=== PATIENT | female | born 1960 | race Caucasian/White ===

== ENCOUNTER 2017-09-09 16:06 | Emergency (ER) | payer BC ==
[2017-09-09 16:37] VITALS: BP 128/70
--- NOTE | 2017-09-09 17:07 | EDM.PDOC ---
ED HPI GENERAL MEDICAL PROBLEM - General Chief Complaint: General Stated Complaint: SENT BY CLINIC POSS INFLAMATION OF ARTERIES Time Seen by Provider: 09/09/17 16:21 Source of Information: Reports: Patient, RN Notes Reviewed - History of Present Illness INITIAL COMMENTS - FREE TEXT/NARRATIVE: 56-year-old female referred with very mild swelling left posterior jaw about 5 days ago. That has been progressively becoming more swollen and uncomfortable. She did go to the walk-in clinic at [facility] yesterday late afternoon. Ultrasound of the area was ordered which was done at 1:00 this afternoon. After this had been read by radiologist she was contacted, informed to see her primary doctor. She was unable to get in to see her regular doctor this afternoon so therefore presents to the ED for further treatment. Her throat does not feel swollen. She is not have any difficulty swallowing. Had no fever or chills. She is had no ear drainage or discomfort. She is never had anything of this nature previously. Treatments LEGAL ADMINISTRATIVE ASSISTANT: Reports: Acetaminophen, Aspirin, NSAIDS, Other (see below) Other Treatments LEGAL ADMINISTRATIVE ASSISTANT: Allerest lotion applied to site this am and again at noon Left Ear Pain Score (Numeric/FACES): 8 - Related Data Allergies Allergy/AdvReac Type Severity Reaction Status Date / Time hydromorphone HCl Allergy Severe Anaphylactic Verified 09/09/17 16:39 [From Dilaudid] Shock metronidazole [From Flagyl] Allergy Intermediate Hives Verified 09/09/17 16:39 morphine Allergy Intermediate Hives Verified 09/09/17 16:39 lisinopril AdvReac Mild Cough Verified 09/09/17 16:39 losartan [From Cozaar] AdvReac Mild Muscle Verified 09/09/17 16:39 Aches simvastatin AdvReac Mild Muscle Verified 09/09/17 16:39 Aches Home Meds: Home Meds Albuterol Sulfate [Proair Hfa] 2 puff IH Q4HR PRN 09/06/15 [History] Budesonide/Formoterol [Symbicort 160-4.5 MCG] 2 puff INH BID 09/06/15 [History] FLUoxetine [PROzac] 60 mg PO BEDTIME 09/06/15 [History] Hydrochlorothiazide 25 mg PO DAILY 09/06/15 [History] Levothyroxine 112 mcg PO ACBREAKFAST 09/06/15 [History] Metoprolol Tartrate [Lopressor] 50 mg PO BID 09/06/15 [History] Omeprazole 40 mg PO 0600,1600 09/06/15 [History] Aspirin 81 mg PO DAILY 06/29/16 [History] Calcium/Magnesium/Zinc [Qfasdyz-Afhpgvcdd-Snxn Tablet] 1 each PO DAILY 06/29/16 [History] Magnesium Amino Acid Chelate [Magnesium] 250 mg PO DAILY 06/29/16 [History] Vitamin B6-pyridOXINE 100 mg PO DAILY 06/29/16 [History] Cephalexin 500 mg PO Q6HR #30 capsule 09/09/17 [Rx] Doxycycline [Vibramycin] 100 mg PO Q12HR #14 cap 09/09/17 [Rx] Past Medical History HEENT History: Reports: Cataract, Impaired Vision, Other (See Below) Other HEENT History: wears glasses Cardiovascular History: Reports: CAD, High Cholesterol, Hypertension Other Cardiovascular History: vericose veins Respiratory History: Reports: Asthma Gastrointestinal History: Reports: GERD, Hiatal Hernia, Other (See Below) Other Gastrointestinal History: Hx Pancreatitis, rectocele Genitourinary History: Reports: None 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, Other (See Below) Other OB/BYN History: cystocele Musculoskeletal History: Reports: Fibromyalgia, Other (See Below) Other Musculoskeletal History: carpal tunnel syndrome Psychiatric History: Reports: Anxiety, Depression Endocrine/Metabolic History: Reports: Hypothyroidism - Infectious Disease History Infectious Disease History: Reports: Chicken Pox, Measles - Past Surgical History Cardiovascular Surgical History: Reports: Other (See Below) Other Cardiovascular Surgeries/Procedures: Cardiac cath with no stents Respiratory Surgical History: Reports: None GI Surgical History: Reports: Appendectomy, Cholecystectomy, Colonoscopy, EGD, ERCP, Other (See Below) Female Surgical History: Reports: Endometrial Ablation, Tubal Ligation Endocrine Surgical History: Reports: None Musculoskeletal Surgical History: Reports: Arthroscopic Knee, Joint Replacement , Other (See Below) Other Musculoskeletal Surgeries/Procedures:: left knee arthroplasty Social & Family History - Family History Family Medical History: Noncontributory - Tobacco Use Smoking Status *Q: Never Smoker Years of Tobacco use: 1 Packs/Tins Daily: 0.1 Used Tobacco, but Quit: Yes Month Tobacco Last Used: 1969 Second Hand Smoke Exposure: No - Caffeine Use Caffeine Use: Reports: Tea - Alcohol Use Days Per Week of Alcohol Use: 0 (endorses 1-2 alcoholic beverages per month) - Recreational Drug Use Recreational Drug Use: No ED ROS GENERAL - Review of Systems Review Of Systems: See Below Constitutional: Denies: Fever, Chills HEENT: Reports: Other. Denies: Throat Pain, Throat Swelling Respiratory: Denies: Shortness of Breath (Swelling left face) Cardiovascular: Denies: Chest Pain GI/Abdominal: Denies: Abdominal Pain, Nausea, Vomiting Musculoskeletal: Denies: Neck Pain, Back Pain, Joint Pain Skin: Reports: Erythema (Left base, angle of jaw) Neurological: Denies: Dizziness, Headache, Numbness, Tingling ED EXAM, GENERAL - Physical Exam Exam: See Below General Appearance: Alert, Mild Distress Eye Exam: Bilateral Eye: PERRL Ear Exam: Bilateral Ear: Canal Normal, TM normal Nose: Normal Inspection Throat/Mouth: Normal Inspection, Normal Oropharynx Head: Facial Swelling (Moderate Swelling present left base near TMJ angle with mild erythema, localized tenderness) Neck: Supple, Full Range of Motion. No: Lymphadenopathy (L), Lymphadenopathy (R ) Respiratory/Chest: No Respiratory Distress, Lungs Clear, Normal Breath Sounds. No: Wheezing Cardiovascular: Regular Rate, Rhythm Extremities: Normal Inspection, Normal Range of Motion Neurological: Alert, Oriented, No Motor/Sensory Deficits Skin Exam: Warm, Dry Course - Vital Signs Last Recorded V/S: Last Vital Signs Temp 97.4 F 09/09/17 16:29 Pulse 68 09/09/17 16:29 Resp 16 09/09/17 16:29 BP 128/70 09/09/17 16:29 Pulse Ox 97 09/09/17 16:29 - Orders/Labs/Meds Labs: Laboratory Tests 09/09/17 09/09/17 Range/Units 17:15 17:15 WBC 8.35 (3.98-10.04) K/mm3 RBC 4.50 (3.98-5.22) M/mm3 Hgb 12.8 (11.2-15.7) gm/L Hct 38.6 (34.1-44.9) % MCV 85.8 (79.4-94.8) fl MCH 28.4 (25.6-32.2) pg MCHC 33.2 (32.2-35.5) g/dl RDW Std Deviation 41.9 (36.4-46.3) fL Plt Count 321 (182-369) K/mm3 MPV 8.1 L (9.4-12.3) fl Neutrophils % (Manual) 62 H (40-60) % Band Neutrophils % 0 (0-10) % Lymphocytes % (Manual) 24 (20-40) % Atypical Lymphs % 0 % Monocytes % (Manual) 10 (2-10) % Eosinophils % (Manual) 2 (0.7-5.8) % Basophils % (Manual) 2 H (0.1-1.2) Platelet Estimate Adequate Plt Morphology Comment Normal RBC Morph Comment Normal C-Reactive Protein 1.0 (<1.0) mg/dL - Re-Assessments/Exams Free Text/Narrative Re-Assessment/Exam: 09/13/17 08:37. I did consult with Dr. Quick, ENT on-call for Mart Roldan. Even though white blood count and sedimentation rate is normal he does feel there may well be a component of infection so does recommend treating with antibiotic. Ultrasound report from clinic reviewed. Discharge instructions as documented. Departure - Departure Time of Disposition: 18:40 Disposition: Home, Self-Care 01 Condition: Fair Clinical Impression: Parotitis not due to mumps - Discharge Information Prescriptions: Cephalexin 500 mg PO Q6HR #30 capsule Doxycycline [Vibramycin] 100 mg PO Q12HR #14 cap Instructions: Parotitis, [id number] Referrals: Queta Mason MD [Primary Care Provider] - Forms: ED Department Discharge Additional Instructions: Cephalexin antibiotic 500 mg 4 times daily and doxycycline 100 mg twice daily as prescribed, lemon draw or other hard candy every 1-2 hours while awake, he may alternate Tylenol and ibuprofen as needed for discomfort, follow-up clinic Wednesday for recheck, call tomorrow for appointment, return to ED if symptoms worsening in any way.
== END 2017-09-09 18:53 | disposition home or self-care (01) ==
LOC: JD.ED 16:06
DX: K11.20 Sialoadenitis, unspecified (principal); I10 Essential (primary) hypertension; E78.00 Pure hypercholesterolemia, unspecified; E03.9 Hypothyroidism, unspecified; Z79.899 Other long term (current) drug therapy; Z87.891 Personal history of nicotine dependence; Z88.5 Allergy status to narcotic agent; Z88.8 Allergy status to other drugs, medicaments and biological substances; Z79.82 Long term (current) use of aspirin; Z88.6 Allergy status to analgesic agent
CPT/HCPCS: 36415; 85025; 86140; 99283

== ENCOUNTER 2019-08-22 09:51 | Emergency (ER) | payer BC ==
[2019-08-22 10:05] VITALS: BP 118/72; PULSE 68
[2019-08-22] MEDS ORDERED: Metoclopramide 10 MG/2 ML SDV IVPUSH ONE (10:15)
[2019-08-22] MEDS ORDERED: Dextrose 5%-0.9% NaCl 1,000 ML IV SCH (10:15)
[2019-08-22] MEDS ORDERED: fentaNYL 100 MCG/2 ML SDV IVPUSH ONE (10:24)
--- NOTE | 2019-08-22 10:28 | EDM.PDOC ---
ED HPI GENERAL MEDICAL PROBLEM - General Chief Complaint: Abdominal Pain Stated Complaint: abd pain/vomiting Time Seen by Provider: 08/22/19 10:15 Source of Information: Reports: Patient History Limitations: Reports: Physical Impairment (Recurrent dry heaving and retching.) - History of Present Illness INITIAL COMMENTS - FREE TEXT/NARRATIVE: 58-year-old female presents to the ED with severe upper abdominal pain and intractable nausea and vomiting. She states she had a bout of severe upper abdominal pain last evening then it seemed to settle a bit overnight. However she awoke with pain this morning and is progressed as the day has gone on. Patient has a history of pancreatitis 2 felt to be induced by gallstone disease. She has had previous cholecystectomy and appendectomy. She is perimenopausal. Denies any fever but does have some chills. Emesis this morning is been all bilious and ascitic. Is not radiating through to her back. She rarely would never drink alcohol. Patient states current pain syndrome feels like what she is experiencing the past with pancreatitis. Onset: Gradual Onset Date: 08/21/19 (Pain started last evening.) Duration: Hour(s):, Getting Worse Location: Reports: Abdomen (Upper abdomen mostly epigastrium left upper quadrant.). Denies: Radiates to Quality: Reports: Ache, Sharp (Is a strong colicky component to the pain.), Stabbing, Other Severity: Severe (10 out of 10) Improves with: Reports: None Worsens with: Reports: None Context: Reports: Other. Denies: Activity, Exercise, Lifting, Sick Contact, Trauma Associated Symptoms: Reports: Loss of Appetite, Malaise, Nausea/Vomiting. Denies: Confusion, Chest Pain, Cough (Spontaneous occurrence), cough w sputum, Diaphoresis, Fever/Chills, Headaches, Rash, Seizure, Shortness of Breath, Syncope Treatments FIRE EXTINGUISHER MECHANIC: Reports: Other (see below) (None.) Epigastric Pain Score (Numeric/FACES): 10 - Related Data Allergies Allergy/AdvReac Type Severity Reaction Status Date / Time hydromorphone HCl Allergy Severe Anaphylactic Verified 08/22/19 09:59 [From Dilaudid] Shock metronidazole [From Flagyl] Allergy Intermediate Hives Verified 08/22/19 09:59 morphine Allergy Intermediate Hives Verified 08/22/19 09:59 lisinopril AdvReac Mild Cough Verified 08/22/19 09:59 losartan [From Cozaar] AdvReac Mild Muscle Verified 08/22/19 09:59 Aches simvastatin AdvReac Mild Muscle Verified 08/22/19 09:59 Aches Home Meds: Home Meds Albuterol Sulfate [Proair Hfa] 2 puff IH Q4HR PRN 09/06/15 [History] Budesonide/Formoterol [Symbicort 160-4.5 MCG] 2 puff INH BID 09/06/15 [History] FLUoxetine [PROzac] 60 mg PO BEDTIME 09/06/15 [History] Hydrochlorothiazide 25 mg PO DAILY 09/06/15 [History] Levothyroxine 112 mcg PO ACBREAKFAST 09/06/15 [History] Metoprolol Tartrate [Lopressor] 50 mg PO BID 09/06/15 [History] Omeprazole 40 mg PO 0600,1600 09/06/15 [History] Aspirin 81 mg PO DAILY 06/29/16 [History] Calcium/Magnesium/Zinc [Rbkmkxm-Olzrkylpp-Josk Tablet] 1 each PO DAILY 06/29/16 [History] Magnesium Amino Acid Chelate [Magnesium] 250 mg PO DAILY 06/29/16 [History] Vitamin B6-pyridOXINE 100 mg PO DAILY 06/29/16 [History] Doxycycline [Vibramycin] 100 mg PO Q12HR #14 cap 09/09/17 [Rx] cephALEXin [Cephalexin] 500 mg PO Q6HR #30 capsule 09/09/17 [Rx] Ondansetron [Zofran] 4 mg BUCCAL Q6H PRN #5 tab 08/22/19 [Rx] Past Medical History HEENT History: Reports: Cataract, Impaired Vision, Other (See Below) Other HEENT History: wears glasses Cardiovascular History: Reports: CAD, High Cholesterol, Hypertension Other Cardiovascular History: vericose veins Respiratory History: Reports: Asthma Gastrointestinal History: Reports: GERD, Hiatal Hernia, Other (See Below) Other Gastrointestinal History: Hx Pancreatitis, rectocele Genitourinary History: Reports: None DIRECTOR COMPLIANCE History: Reports: Endometrial Ablation, Other (See Below) Other DIRECTOR COMPLIANCE History: cystocele Musculoskeletal History: Reports: Fibromyalgia, Other (See Below) Other Musculoskeletal History: carpal tunnel syndrome Psychiatric History: Reports: Anxiety, Depression Endocrine/Metabolic History: Reports: Hypothyroidism (On supplement.), Osteopenia - Infectious Disease History Infectious Disease History: Reports: Chicken Pox, Measles - Past Surgical History Cardiovascular Surgical History: Reports: Other (See Below) Other Cardiovascular Surgeries/Procedures: Cardiac cath with no stents Respiratory Surgical History: Reports: None GI Surgical History: Reports: Appendectomy, Cholecystectomy, Colonoscopy, EGD, ERCP Female Surgical History: Reports: Endometrial Ablation, Tubal Ligation Endocrine Surgical History: Reports: None Musculoskeletal Surgical History: Reports: Arthroscopic Knee, Joint Replacement , Knee Replacement, Other (See Below) Other Musculoskeletal Surgeries/Procedures:: left knee arthroplasty, L) knee replacement. Social & Family History - Family History Family Medical History: Noncontributory - Tobacco Use Smoking Status *Q: Never Smoker Second Hand Smoke Exposure: No - Caffeine Use Caffeine Use: Reports: Tea - Recreational Drug Use Recreational Drug Use: No - Living Situation & Occupation Living situation: Reports: Occupation: Employed ED ROS GENERAL - Review of Systems Review Of Systems: See Below Constitutional: Reports: Chills, Malaise, Weakness, Fatigue, Decreased Appetite. Denies: Fever HEENT: Reports: Glasses Respiratory: Reports: No Symptoms Cardiovascular: Reports: No Symptoms Endocrine: Reports: Fatigue GI/Abdominal: Reports: Abdominal Pain, Anorexia, Nausea (See history of present illness), Vomiting (Intractable nausea and vomiting this morning.) : Reports: No Symptoms Musculoskeletal: Reports: No Symptoms Skin: Reports: No Symptoms Neurological: Reports: No Symptoms Psychiatric: Reports: Depression Hematologic/Lymphatic: Reports: No Symptoms Immunologic: Reports: No Symptoms ED EXAM, GI/ABD - Physical Exam Exam: See Below Exam Limited By: No Limitations General Appearance: Alert, WD/WN, Severe Distress, Other (Intractable nausea and vomiting. Bilious emesis this morning.) Eyes: Bilateral: Normal Appearance (No scleral icterus.) Throat/Mouth: Other Head: Atraumatic, Normocephalic Neck: Normal Inspection, Supple, Non-Tender, Full Range of Motion. No: Carotid Bruit, Lymphadenopathy (L), Lymphadenopathy (R) Respiratory/Chest: No Respiratory Distress, Lungs Clear, Normal Breath Sounds, No Accessory Muscle Use, Chest Non-Tender, Respiratory Distress Cardiovascular: Normal Peripheral Pulses, Regular Rate, Rhythm, No Edema, No Gallop, No Murmur (Mild tachypnea from vomiting.), No Rub GI/Abdominal Exam: No Organomegaly, No Distention, Pelvis Stable, Tender ( Wrists in the epigastrium and left upper quadrant and right upper quadrant with a mildly positive Logan's sign.), Abnormal Bowel Sounds (Bowel sounds are very quiet sent and all 4 quadrants.) Back Exam: Normal Inspection, Full Range of Motion. No: CVA Tenderness (L), CVA Tenderness (R) Extremities: Normal Inspection, Normal Range of Motion, Non-Tender Neurological: Alert, Oriented, CN II-XII Intact, Normal Cognition Psychiatric: Other Skin Exam: Cool, Pallor (Cool and clammy to touch. Mildly pallid.) EKG INTERPRETATION EKG Date: 08/22/19 Time: 10:28 Rhythm: NSR Rate (Beats/Min): 65 [place]: Normal P-Wave: Enlarged (Mildly enlarged. Consider left atrial hypertrophy.) QRS: Normal ST-T: Other (Diffuse nonspecific T-wave changes with flattening and inversion in V1 and V2.) QT: Normal EKG Interpretation Comments: Borderline ECG. Course - Vital Signs Last Recorded V/S: Last Vital Signs Temp 35.7 C 08/22/19 09:55 Pulse 68 08/22/19 09:55 Resp 20 08/22/19 09:55 BP 118/72 08/22/19 09:55 Pulse Ox 100 08/22/19 09:55 - Orders/Labs/Meds Orders: Active Orders 24 hr Category Date Time Status EKG Documentation Completion [RC] STAT Care 08/22/19 10:25 Active Influenza Vaccine Charge [RC] .DISCHARGE Care 08/22/19 10:11 Active CALCIUM, IONIZED, SERUM [REF] Stat Lab 08/22/19 10:00 Received Labs: Laboratory Tests 08/22/19 08/22/19 08/22/19 Range/Units 10:00 10:00 10:00 WBC 7.31 (3.98-10.04) K/mm3 RBC 4.81 (3.98-5.22) M/mm3 Hgb 13.8 (11.2-15.7) gm/dl Hct 41.2 (34.1-44.9) % MCV 85.7 (79.4-94.8) fl MCH 28.7 (25.6-32.2) pg MCHC 33.5 (32.2-35.5) g/dl RDW Std Deviation 42.3 (36.4-46.3) fL Plt Count 337 (182-369) K/mm3 MPV 8.8 L (9.4-12.3) fl Neutrophils % (Manual) 83 H (40-60) % Band Neutrophils % 0 (0-10) % Lymphocytes % (Manual) 15 L (20-40) % Atypical Lymphs % 0 % Monocytes % (Manual) 2 (2-10) % Eosinophils % (Manual) 0 L (0.7-5.8) % Basophils % (Manual) 0 L (0.1-1.2) Platelet Estimate Adequate Plt Morphology Comment Normal RBC Morph Comment Normal PT 10.5 (9.7-12.0) SECONDS INR 0.96 APTT 24 (22-31) SECONDS Sodium 136 (136-145) mEq/L Potassium 3.2 L (3.5-5.1) mEq/L Chloride 100 (98-107) mEq/L Carbon Dioxide 26 (21-32) mEq/L Anion Gap 13.2 (5-15) BUN 21 H (7-18) mg/dL Creatinine 1.0 (0.55-1.02) mg/dL Est Cr Clr Drug Dosing 52.95 mL/min Estimated GFR (MDRD) 57 (>60) mL/min BUN/Creatinine Ratio 21.0 H (14-18) Glucose 110 H (74-106) mg/dL Calcium 10.0 (8.5-10.1) mg/dL Magnesium 1.6 L (1.8-2.4) mg/dl Total Bilirubin 1.0 (0.2-1.0) mg/dL AST 32 (15-37) U/L ALT 32 (14-59) U/L Alkaline Phosphatase 119 H (46-116) U/L C-Reactive Protein 0.7 (<1.0) mg/dL Total Protein 7.3 (6.4-8.2) g/dl Albumin 3.7 (3.4-5.0) g/dl Globulin 3.6 gm/dL Albumin/Globulin Ratio 1.0 (1-2) Triglycerides 63 (<150) mg/dL Lipase 222 (73-393) U/L TSH 3rd Generation (0.358-3.74) uIU/mL 08/22/19 Range/Units 10:00 WBC (3.98-10.04) K/mm3 RBC (3.98-5.22) M/mm3 Hgb (11.2-15.7) gm/dl Hct (34.1-44.9) % MCV (79.4-94.8) fl MCH (25.6-32.2) pg MCHC (32.2-35.5) g/dl RDW Std Deviation (36.4-46.3) fL Plt Count (182-369) K/mm3 MPV (9.4-12.3) fl Neutrophils % (Manual) (40-60) % Band Neutrophils % (0-10) % Lymphocytes % (Manual) (20-40) % Atypical Lymphs % % Monocytes % (Manual) (2-10) % Eosinophils % (Manual) (0.7-5.8) % Basophils % (Manual) (0.1-1.2) Platelet Estimate Plt Morphology Comment RBC Morph Comment PT (9.7-12.0) SECONDS INR APTT (22-31) SECONDS Sodium (136-145) mEq/L Potassium (3.5-5.1) mEq/L Chloride (98-107) mEq/L Carbon Dioxide (21-32) mEq/L Anion Gap (5-15) BUN (7-18) mg/dL Creatinine (0.55-1.02) mg/dL Est Cr Clr Drug Dosing mL/min Estimated GFR (MDRD) (>60) mL/min BUN/Creatinine Ratio (14-18) Glucose (74-106) mg/dL Calcium (8.5-10.1) mg/dL Magnesium (1.8-2.4) mg/dl Total Bilirubin (0.2-1.0) mg/dL AST (15-37) U/L ALT (14-59) U/L Alkaline Phosphatase (46-116) U/L C-Reactive Protein (<1.0) mg/dL Total Protein (6.4-8.2) g/dl Albumin (3.4-5.0) g/dl Globulin gm/dL Albumin/Globulin Ratio (1-2) Triglycerides (<150) mg/dL Lipase (73-393) U/L TSH 3rd Generation 0.626 (0.358-3.74) uIU/mL Meds: Medications Discontinued Medications Generic Name Dose Route Start Last Admin Trade Name Freq PRN Reason Stop Dose Admin Dicyclomine HCl 20 mg 08/22/19 11:50 08/22/19 12:13 Bentyl PO 08/22/19 11:51 20 mg ONETIME ONE Administration Fentanyl 50 mcg 08/22/19 10:24 08/22/19 10:45 Sublimaze IVPUSH 08/22/19 10:25 50 mcg ONETIME ONE Administration Dextrose/Sodium Chloride 1,000 mls @ 150 mls/hr 08/22/19 10:15 08/22/19 10:23 Dextrose 5%-Normal Saline IV 150 mls/hr ASDIRECTED KARLY Administration Influenza Virus Vaccine 1 each 08/22/19 10:11 Pharmacy To Dose - Influenza Vaccine IM 08/22/19 10:12 ONETIME ONE Influenza Virus Vaccine 60 mcg 08/22/19 10:45 08/22/19 12:13 Fluzone Quad [id number] Syringe IM 08/22/19 10:46 60 mcg .ONCE ONE Administration Magnesium Citrate 210 ml 08/22/19 11:50 08/22/19 12:13 Citrate Of Magnesia PO 08/22/19 11:51 210 ml ONETIME ONE Administration Metoclopramide HCl 7.5 mg 08/22/19 10:15 08/22/19 10:18 Reglan IVPUSH 08/22/19 10:16 7.5 mg ONETIME ONE Administration - Radiology Interpretation Free Text/Narrative:: 58-year-old female presents to the ED with acute onset of upper abdominal pain last evening which is progressed overnight. Associated nausea and vomiting of bilious material this morning. She has a history of pancreatitis at least twice in the past thought to be induced by gallbladder disease. Subsequent she's had a cholecystectomy greater than 10 years ago. She rarely drinks alcohol. There is a strong colicky component to her pain however. She states her bowel function has been normal this morning and last night without blood. Plan IV D5 normal saline at 150 mils per hour. Reglan 7.5 mg IV. She's allergic to Dilaudid and morphine. We'll try fentanyl 50 g IV for pain relief. She will have one view the abdomen routine labs including a serum lipase. Will likely require CT the abdomen. - Re-Assessments/Exams Free Text/Narrative Re-Assessment/Exam: 08/22/19 11:08 KUB reveals increased stool in the splenic flexure hand dominant descending colon with no signs of bowel obstruction. 08/22/19 11:23 White blood cell count is 7.31 with 83% neutrophils and no bands reported. Hemoglobin 13.8 with hematocrit of 41.2. MCV is normal. Platelet count 3 and 37,000. PT is 10.5 with an INR of 0.96 PTT is 24. Sodium 136 potassium slightly low at 3.2. Chloride 100 with a bicarbonate of 26. And a gap is 13.2. BUN is 21 with a creatinine of 1.0. Glucose is 110 calcium is 10.0. Magnesium is slightly low at 1.6. Liver function is normal alk phosphatase is 119 C-reactive protein 0.7. Total protein is 7.3 with an albumin fraction of 3.7. Triglycerides are 63. Lipase is 222. 08/22/19 11:49 discussed the findings with the patient and her . No signs of pancreatitis. Pain is markedly improved. Vomiting is better. I suspect diabetes into her abdomen due to increased bowel sounds that it is due to a stool plug causing her severe abdominal pain. I'm therefore going to give her Bentyl 20 mg by mouth daily for the cramping. Also Citroma 7 ounces by mouth mixed with 6 ounces of juice to provide bowel cleanse and see how things go. She will return to the ED if not markedly improved after bowel cleanse. I'm going to discharge her on Zofran 4 mg sublingual every 4-6 hours necessary for nausea relief in case it returns. She was given Bentyl 20 mg by mouth before leaving the department to relieve any further abdominal cramping pain. Departure - Departure Time of Disposition: 11:51 Disposition: Home, Self-Care 01 Condition: Fair Clinical Impression: Constipation by delayed colonic transit Abdominal pain Qualifiers: Abdominal location: upper abdomen Qualified Code(s): R10.10 - Upper abdominal pain, unspecified - Discharge Information *PRESCRIPTION DRUG MONITORING PROGRAM REVIEWED*: Not Applicable *COPY OF PRESCRIPTION DRUG MONITORING REPORT IN PATIENT [place]: Not Applicable Prescriptions: Ondansetron [Zofran] 4 mg BUCCAL Q6H PRN #5 tab PRN Reason: nausea or vomiting Instructions: Constipation, Adult Referrals: Oracio Welch MD [Primary Care Provider] - Forms: ED Department Discharge, ED Return to Work/School Form Additional Instructions: Evaluation the emergency room this morning in regards to development of severe epigastric upper abdominal pain associated with intractable nausea and vomiting. Pain started suddenly last night and then seemed to settle overnight but came back severely this morning. Gone colicky component to the pain. Concern was for recurrence of pancreatitis. You have had this in the past. Labs don't reveal any signs of hepatitis/pancreatitis with normal enzymes no signs of infection either. The x-ray of the abdomen does show increased air and stool scattered throughout the colon and there are couple of areas that could act as a stool plug to cause such intense intestinal colic and pain syndrome. Suggest use of magnesium citrate 7 ounces by mouth mixed with 6 ounces of juice of choice to provide bowel cleanse. 4 mg sublingually will be sent home with your case nausea reoccur To be taken under the tongue every 4-6 hours as needed. You are also given Bentyl 20 mg by mouth in the ED to help alleviate abdominal cramping pain if it reoccurs. Return to medical care if not markedly improved after bowel cleanse. - My Orders Last 24 Hours: My Active Orders 08/22/19 10:00 CALCIUM, IONIZED, SERUM [REF] Stat 08/22/19 10:11 Influenza Vaccine Charge [RC] .DISCHARGE 08/22/19 10:25 EKG Documentation Completion [RC] STAT - Assessment/Plan Last 24 Hours: My Active Orders 08/22/19 10:00 CALCIUM, IONIZED, SERUM [REF] Stat 08/22/19 10:11 Influenza Vaccine Charge [RC] .DISCHARGE 08/22/19 10:25 EKG Documentation Completion [RC] STAT
[2019-08-22] MEDS ORDERED: FLU Vacc QS2019-20(6MOS+)/PF 60 MCG/0.5 ML SYRINGE IM ONE (10:45)
--- NOTE | 2019-08-22 11:00 | CR ---
Abdomen: Supine view of the abdomen was obtained. Comparison: Prior abdominal x-ray of 12/14/09. Surgical clips are seen from prior cholecystectomy. Bowel gas pattern is normal. Calcifications are seen within the pelvis which are felt compatible with phleboliths. Bony structures appear within normal limits for the patient's age. Impression: 1. Findings believed to be incidental. 2. Nothing acute is appreciated on supine abdominal x-ray. Diagnostic code #2
[2019-08-22] MEDS ORDERED: Dicyclomine 10 MG Cap PO ONE (11:50)
[2019-08-22] MEDS ORDERED: Magnesium Citrate Solution 296 ML Bottle PO ONE (11:50)
== END 2019-08-22 12:22 | disposition home or self-care (01) ==
LOC: JD.ED 09:51
DX: K59.01 Slow transit constipation (principal); I25.10 Atherosclerotic heart disease of native coronary artery without angina pectoris; I10 Essential (primary) hypertension; F32.9 Major depressive disorder, single episode, unspecified; J45.909 Unspecified asthma, uncomplicated; K21.9 Gastro-esophageal reflux disease without esophagitis; E03.9 Hypothyroidism, unspecified; Z88.8 Allergy status to other drugs, medicaments and biological substances; Z88.5 Allergy status to narcotic agent; Z79.899 Other long term (current) drug therapy; Z79.51 Long term (current) use of inhaled steroids; Z79.82 Long term (current) use of aspirin; Z79.84 Long term (current) use of oral hypoglycemic drugs
CPT/HCPCS: 36415; 74018; 80053; 82330; 83690; 83735; 84443; 84478; 85007; 85027; 85610; 85730; 86140; 90471; 90686; 93005; 96361; 96374; 96375; 99284; A9270; J2765; J3010; J7042; 93010; G0008

== ENCOUNTER 2020-12-27 12:48 | Emergency (ER) | payer BC ==
[2020-12-27 12:58] VITALS: BP 148/101; PULSE 62
[2020-12-27] MEDS ORDERED: Sodium Chloride 0.9% 10 ML Syringe FLUSH PRN (13:03)
[2020-12-27] MEDS ORDERED: diphenhydrAMINE 50 MG/ML SDV IVPUSH ONE (13:10)
[2020-12-27] MEDS ORDERED: LORazepam 2 MG/ML SDV IVPUSH ONE (13:10)
[2020-12-27] MEDS ORDERED: Metoclopramide 10 MG/2 ML SDV IVPUSH ONE (13:11)
--- NOTE | 2020-12-27 13:20 | EDM.PDOC ---
ED HPI GENERAL MEDICAL PROBLEM - General Chief Complaint: Neurological Problem Stated Complaint: [facility] Time Seen by Provider: 12/27/20 13:03 Source of Information: Reports: Patient, RN Notes Reviewed History Limitations: Reports: No Limitations - History of Present Illness INITIAL COMMENTS - FREE TEXT/NARRATIVE: Patient is a 60-year-old female who presents to the ED for the evaluation of her sudden onset dizziness. Patient was brought in by [facility] and was given 4 mg Zofran prior to coming to the ER, but vomited shortly after getting the Zofran. Patient states that she was at work, at a local intermediate, when she began with sudden onset dizziness, and felt like she was going to faint. She was able to sit down at this time. She notes that when she makes any movement at all, that this makes her extremely dizzy, and a world spinning type fashion. She also notes that she cannot have her eyes open, as this also makes the dizziness worse. She does have a history of vertigo but notes she has not had any issues like this for the last 12 or 13 years. Patient's primary care provider is Dr. Whitlock. She is denies any fevers or chills, cough/shortness of breath, she was not having any nausea or vomiting prior to coming to the ER. Further denies any headache. Treatments FAMILY ENGAGEMENT SPECIALIST: Reports: Other (see below) Other Treatments FAMILY ENGAGEMENT SPECIALIST: zofran by ambulance and aspirin - Related Data Allergies Allergy/AdvReac Type Severity Reaction Status Date / Time hydromorphone HCl Allergy Severe Anaphylactic Verified 08/22/19 09:59 [From Dilaudid] Shock metronidazole [From Flagyl] Allergy Intermediate Hives Verified 08/22/19 09:59 morphine Allergy Intermediate Hives Verified 08/22/19 09:59 lisinopril AdvReac Mild Cough Verified 08/22/19 09:59 losartan [From Cozaar] AdvReac Mild Muscle Verified 08/22/19 09:59 Aches simvastatin AdvReac Mild Muscle Verified 08/22/19 09:59 Aches Home Meds: Home Meds Albuterol Sulfate [Proair Hfa] 2 puff IH Q4HR PRN 09/06/15 [History] FLUoxetine [PROzac] 60 mg PO BEDTIME 09/06/15 [History] Hydrochlorothiazide 25 mg PO DAILY 10/30/15 [History] Levothyroxine 112 mcg PO ACBREAKFAST 09/06/15 [History] Metoprolol Tartrate [Lopressor] 50 mg PO BID 09/06/15 [History] Aspirin 81 mg PO DAILY 06/29/16 [History] Calcium/Magnesium/Zinc [Uvhkgov-Mgyzfffry-Scfv Tablet] 1 each PO DAILY 06/29/16 [History] Magnesium Amino Acid Chelate [Magnesium] 250 mg PO DAILY 06/29/16 [History] Azelastine [Astelin Nasal Soln] 2 spray INH Q12H 12/27/20 [History] Cefdinir [Omnicef] 300 mg PO BID #24 cap 12/27/20 [Rx] Fluticasone Propionate [Flonase Allergy Relief] 2 spray INH DAILY 12/27/20 [History] Ipratropium [Atrovent 0.03% Nasal [place]] 2 spray INH ASDIRECTED PRN 12/27/20 [History] Metoclopramide [Reglan] 5 mg PO Q6H PRN #20 cup 12/27/20 [Rx] Montelukast Sodium [Singulair] 10 mg PO BEDTIME 12/27/20 [History] Pantoprazole Sodium [Protonix] 40 mg PO DAILY 12/27/20 [History] Potassium Chloride 10 meq PO DAILY 12/27/20 [History] buPROPion [buPROPion XL] 150 mg PO DAILY 12/27/20 [History] carBAMazepine [TEGretol Tab] 100 mg PO BID 10 Days #10 tab 12/27/20 [Rx] predniSONE 20 mg PO ASDIRECTED #15 tab 12/27/20 [Rx] Past Medical History HEENT History: Reports: Cataract, Impaired Vision (wears glasses), Other (See Below) Other HEENT History: BPPV Cardiovascular History: Reports: CAD, High Cholesterol, Hypertension, Other (See Below) Other Cardiovascular History: varicose veins Respiratory History: Reports: Asthma Gastrointestinal History: Reports: GERD, Hiatal Hernia, Other (See Below) Other Gastrointestinal History: Hx Pancreatitis, rectocele RECEIVING TANK OPERATOR History: Reports: Endometrial Ablation, Other (See Below) Other RECEIVING TANK OPERATOR History: cystocele Musculoskeletal History: Reports: Fibromyalgia, Other (See Below) Other Musculoskeletal History: carpal tunnel syndrome Psychiatric History: Reports: Anxiety, Depression Endocrine/Metabolic History: Reports: Hypothyroidism, Osteopenia - Infectious Disease History Infectious Disease History: Reports: Chicken Pox, Measles - Past Surgical History Cardiovascular Surgical History: Reports: Other (See Below) Other Cardiovascular Surgeries/Procedures: Cardiac cath with no stents GI Surgical History: Reports: Appendectomy, Cholecystectomy, Colonoscopy, EGD, ERCP Other GI Surgeries/Procedures: pt reports having a surgery that was unsucces sful; reports she had a bulge in colon area and was. "fixed"; hemorrhoidectomy Female Surgical History: Reports: Endometrial Ablation, Tubal Ligation Musculoskeletal Surgical History: Reports: Arthroscopic Knee, Joint Replacement, Knee Replacement, Other (See Below) Other Musculoskeletal Surgeries/Procedures:: left knee arthroplasty, L) knee replacement. Social & Family History - Family History Family Medical History: No Pertinent Family History - Tobacco Use Tobacco Use Status *Q: Never Tobacco User - Caffeine Use Caffeine Use: Reports: Tea - Recreational Drug Use Recreational Drug Use: No - Living Situation & Occupation Living situation: Reports: Occupation: Employed ED ROS GENERAL - Review of Systems Review Of Systems: Comprehensive ROS is negative, except as noted in HPI. ED EXAM, NEURO - Physical Exam Exam: See Below Exam Limited By: No Limitations General Appearance: Alert, WD/WN, No Apparent Distress (pt keeps eyes closed, as she states that this makes the dizziness much worse.) #1 Interpretation EKG Date: 12/27/20 Time: 12:59 Rhythm: NSR Rate (Beats/Min): 59 [place]: Normal P-Wave: Present QRS: Normal ST-T: Normal QT: Normal EKG Interpretation Comments: No obvious ischemia or acute ST changes noted, reviewed by myself and Dr. Walters. Course - Vital Signs Last Recorded V/S: Last Vital Signs Temp 96.0 F L 12/27/20 12:56 Pulse 62 12/27/20 12:56 Resp 18 12/27/20 12:56 BP 148/101 H 12/27/20 12:56 Pulse Ox 93 L 12/27/20 12:56 - Orders/Labs/Meds Orders: Active Orders 24 hr Category Date Time Status EKG Documentation Completion [RC] STAT Care 12/27/20 13:18 Ordered Peripheral IV Care [RC] . DIRECTED Care 12/27/20 13:03 Ordered Sodium Chloride 0.9% [Saline Flush] Med 12/27/20 13:03 Ordered 10 ml FLUSH ASDIRECTED PRN Peripheral IV Insertion Adult [OM.PC] Routine Oth 12/27/20 13:03 Ordered Medication Orders Sodium Chloride (Saline Flush) 10 ml FLUSH ASDIRECTED PRN PRN Reason: Keep Vein Open Last Admin: 12/27/20 13:50 Dose: 10 ml Documented by: Labs: Laboratory Tests 12/27/20 12/27/20 12/27/20 Range/Units 12:55 12:55 13:03 WBC 7.35 (3.98-10.04) K/mm3 RBC 4.54 (3.98-5.22) M/mm3 Hgb 13.0 (11.2-15.7) gm/dl Hct 39.5 (34.1-44.9) % MCV 87.0 (79.4-94.8) fl MCH 28.6 (25.6-32.2) pg MCHC 32.9 (32.2-35.5) g/dl RDW Std Deviation 40.9 (36.4-46.3) fL Plt Count 362 (182-369) K/mm3 MPV 8.8 L (9.4-12.3) fl Neut % (Auto) 59.6 (34.0-71.1) % Lymph % (Auto) 32.0 (19.3-51.7) % [place] % (Auto) 7.9 (4.7-12.5) % Eos % (Auto) 0 L (0.7-5.8) Baso % (Auto) 0.4 (0.1-1.2) % Neut # (Auto) 4.38 (1.56-6.13) K/mm3 Lymph # (Auto) 2.35 (1.18-3.74) K/mm3 [place] # (Auto) 0.58 H (0.24-0.36) K/mm3 Eos # (Auto) 0.00 L (0.04-0.36) K/mm3 Baso # (Auto) 0.03 (0.01-0.08) K/mm3 PT 10.3 (9.7-12.0) SECONDS INR 0.96 APTT 22.2 (21.7-31.4) SECONDS Sodium 142 (136-145) mEq/L Potassium 3.8 (3.5-5.1) mEq/L Chloride 104 (98-107) mEq/L Carbon Dioxide 25 (21-32) mEq/L Anion Gap 16.8 H (5-15) BUN 18 (7-18) mg/dL Creatinine 0.9 (0.55-1.02) mg/dL Est Cr Clr Drug Dosing 57.40 mL/min Estimated GFR (MDRD) > 60 (>60) mL/min BUN/Creatinine Ratio 20.0 H (14-18) Glucose 109 H (74-106) mg/dL Calcium 10.4 H (8.5-10.1) mg/dL Magnesium 1.9 (1.8-2.4) mg/dl Total Bilirubin 0.6 (0.2-1.0) mg/dL AST 26 (15-37) U/L ALT 30 (14-59) U/L Alkaline Phosphatase 94 (46-116) U/L Total Protein 7.5 (6.4-8.2) g/dl Albumin 3.9 (3.4-5.0) g/dl Globulin 3.6 gm/dL Albumin/Globulin Ratio 1.1 (1-2) Meds: Medications Generic Name Dose Route Start Last Admin Trade Name Freq PRN Reason Stop Dose Admin Sodium Chloride 10 ml 12/27/20 13:03 12/27/20 13:50 Saline Flush FLUSH 10 ml ASDIRECTED PRN Administration Keep Vein Open Discontinued Medications Generic Name Dose Route Start Last Admin Trade Name Freq PRN Reason Stop Dose Admin Diphenhydramine HCl 25 mg 12/27/20 13:10 12/27/20 13:52 Benadryl IVPUSH 12/27/20 13:11 25 mg ONETIME ONE Administration Lorazepam 1 mg 12/27/20 13:10 12/27/20 13:54 Ativan IVPUSH 12/27/20 13:11 1 mg ONETIME ONE Administration Metoclopramide HCl 7.5 mg 12/27/20 13:11 12/27/20 13:50 Reglan IVPUSH 12/27/20 13:12 7.5 mg ONETIME ONE Administration - Re-Assessments/Exams Free Text/Narrative Re-Assessment/Exam: 12/27/20 13:23 Patient presents to the ED for the evaluation of her dizziness, this does appear to be a severe case of vertigo versus cerebellar bleed. We will go ahead and get a head CT, IV was established and she will get 1 mg Ativan, 7.5 Reglan and 25 mg Benadryl for dizziness management. I was able to contact [facility], in the event that the CT is normal, for evaluation and treatment of her vertigo. 12/27/20 13:[address] demonstrates chronic sinus issues however no acute bleeds or other intracranial abnormalities were appreciated. At this time physical therapy did present to the ER for possible vertigo treatment, we will go ahead and let them evaluate and treat her. Labs are essentially unremarkable. 12/27/20 14:33 CT did come back, and states that he thinks is more of a labyrinthitis type picture. We will go ahead and get her on a course of steroids, some Reglan Tegretol, and Omnicef for the chronic sinus changes found on the CT as well. We will go ahead and discuss with the patient how to use these medications. She will be given a week off of work. Departure - Departure Time of Disposition: 14:34 Disposition: Home, Self-Care 01 Condition: Good Clinical Impression: Labyrinthitis, acute Qualifiers: Laterality: unspecified laterality Qualified Code(s): H83.09 - Labyrinthitis, unspecified ear - Discharge Information *PRESCRIPTION DRUG MONITORING PROGRAM REVIEWED*: No *COPY OF PRESCRIPTION DRUG MONITORING REPORT IN PATIENT [place]: No Prescriptions: Cefdinir [Omnicef] 300 mg PO BID #24 cap predniSONE 20 mg PO ASDIRECTED #15 tab Metoclopramide [Reglan] 5 mg PO Q6H PRN #20 cup PRN Reason: Nausea carBAMazepine [TEGretol Tab] 100 mg PO BID 10 Days #10 tab Instructions: Labyrinthitis, [id number] Referrals: Oracio Welch MD [Primary Care Provider] - Forms: ED Department Discharge, ED Return to Work/School Form Additional Instructions: You were seen in this ER today for your sudden onset dizziness. The CT done at today's visit demonstrate no acute bleeds or other abnormalities. Laboratory evaluation also was unremarkable. PT did come to evaluate you, and he believes you are suffering from labyrinthitis which is an infection or dysfunction of your inner ear/balance center. Management for this will be steroids, nausea medications, and antibiotic as you were also found to have some chronic sinus changes on your CT. You have been prescribed a few different medications: #1 metoclopramide, 5 mg every 6 hours as needed for further nausea, please be aware that this may interact with your Wellbutrin, so if you start developing involuntary muscle tics or-like symptoms, discontinue the use of the Reglan. #2 Tegretol, 100 mg twice daily for the next 10 days #3 Omnicef, 1 tablet twice daily for the next 12 days #4 prednisone 1 tablet twice daily for the first 5 days, and then 1 tablet for the last 5 days. The physical therapist did state that he was going to coordinate an automatic engra[facility] referral for you, if you do not hear from them by Wednesday, the physical therapy office number is [phone]. Sepsis Event Note (ED) - Evaluation Sepsis Screening Result: No Definite Risk - Focused Exam Vital Signs: Vital Signs Temp Pulse Resp BP Pulse Ox 12/27/20 12:56 96.0 F L 62 18 148/101 H 93 L - My Orders Last 24 Hours: My Active Orders 12/27/20 13:03 Peripheral IV Care [RC] . DIRECTED Sodium Chloride 0.9% [Saline Flush] 10 ml FLUSH ASDIRECTED PRN Peripheral IV Insertion Adult [OM.PC] Routine 12/27/20 13:18 EKG Documentation Completion [RC] STAT - Assessment/Plan Last 24 Hours: My Active Orders 12/27/20 13:03 Peripheral IV Care [RC] . DIRECTED Sodium Chloride 0.9% [Saline Flush] 10 ml FLUSH ASDIRECTED PRN Peripheral IV Insertion Adult [OM.PC] Routine 12/27/20 13:18 EKG Documentation Completion [RC] STAT
--- NOTE | 2020-12-27 13:45 | CT ---
Head CT Technique: Multiple axial sections through the brain were obtained. Intravenous contrast was not utilized. Reconstructed coronal and sagittal images were obtained. Comparison: No prior intracranial imaging is available. Findings: Ventricles along with basal cisterns and sulci over the convexities are within normal limits for the patient's age. No abnormal parenchymal densities are seen. No evidence of intracranial hemorrhage. No midline shift or mass-effect is appreciated. Contents of the posterior fossa appear to be intact. Bone window settings were reviewed which show the visualized mastoid sinuses to appear clear. Visualized portions of the right maxillary sinus appear to be opacified. Mild mucosal thickening is seen within the posterior ethmoid sinuses. No acute calvarial finding is appreciated. Impression: 1. Chronic sinus disease as noted above. 2. Nothing acute is appreciated on noncontrast CT study of the brain. Diagnostic code #2
== END 2020-12-27 15:20 | disposition home or self-care (01) ==
LOC: JD.ED 12:48
DX: H83.09 Labyrinthitis, unspecified ear (principal); I25.10 Atherosclerotic heart disease of native coronary artery without angina pectoris; I10 Essential (primary) hypertension; J45.909 Unspecified asthma, uncomplicated; K21.9 Gastro-esophageal reflux disease without esophagitis; E03.9 Hypothyroidism, unspecified; Z88.5 Allergy status to narcotic agent; Z88.1 Allergy status to other antibiotic agents; Z88.8 Allergy status to other drugs, medicaments and biological substances; Z79.82 Long term (current) use of aspirin; Z79.899 Other long term (current) drug therapy
CPT/HCPCS: 36415; 70450; 80053; 83735; 85025; 85610; 85730; 93005; 96374; 96375; 99284; J1200; J2060; J2765; 93010; 99283